=== PATIENT | male | born 1990 | race Caucasian/White ===

== ENCOUNTER 2019-07-15 20:28 | Emergency (ER) | payer SELFPAY ==
[~2019-07-15] VITALS: Ht 167.6 cm; Wt 68.0 kg
[2019-07-15 20:37] VITALS: BP 126/72
[2019-07-15] MEDS ORDERED: FLUORESCEIN SODIUM OPHTH 1 EA STRIP ONE (20:39)
--- NOTE | 2019-07-15 20:40 | NUR ---
PT CAME TO THE ED C/O FOREIGN BODY ON THE LEFT EYE SINCE THIS MORNING. +REDNESS ON THE L EYE. NO ACUTE DISTRESS NOTED. DR LEVIN AT BEDSIDE
--- NOTE | 2019-07-15 20:57 | NUR ---
Patient discharged to home in stable condition. Written and verbal after care instructions given. Patient verbalizes understanding of instruction. No foreign body in the eye as examined.
[2019-07-15] MEDS ORDERED: FLUORESCEIN SODIUM OPHTH 1 EA STRIP OP ONE (21:00)
== END 2019-07-15 21:02 | disposition home or self-care (01) ==
LOC: ER 20:34
DX: H57.89 Other specified disorders of eye and adnexa (principal)